=== PATIENT | female | born 1945 ===

== ENCOUNTER → 2022-01-06 15:05 | Outpatient (BNVA) | payer BC, SELFPAY | PROVIDERS: Family Provider Family Medicine; PCP Family Medicine; Visit Provider Family Medicine | DX: E03.9 Hypothyroidism, unspecified (principal); E78.2 Mixed hyperlipidemia; F32.9 Major depressive disorder, single episode, unspecified; I10 Essential (primary) hypertension; M19.90 Unspecified osteoarthritis, unspecified site; M54.16 Radiculopathy, lumbar region; Z76.89 Persons encountering health services in other specified circumstances | CPT/HCPCS: 80053; 80061; 84439; 84443; 85025 ==

== ENCOUNTER → 2023-07-06 10:38 | Outpatient (BNVA) | payer MEDICARE, SELFPAY | PROVIDERS: Family Provider Family Medicine; PCP Family Medicine; Visit Provider Family Medicine | DX: E55.9 Vitamin D deficiency, unspecified (principal); I10 Essential (primary) hypertension; E03.9 Hypothyroidism, unspecified; R63.4 Abnormal weight loss; E78.01 Familial hypercholesterolemia; E83.42 Hypomagnesemia; R79.89 Other specified abnormal findings of blood chemistry | CPT/HCPCS: 80053; 80061; 82306; 82607; 82746; 83735; 84439; 84443; 85025 ==

== ENCOUNTER 2023-08-31 09:13 | Outpatient (RCR) | payer MEDICARE, SELFPAY | END 2023-09-25 23:59 | disposition home or self-care (01) | LOC: SPT 09:13 | PROVIDERS: Visit Provider Family Medicine | DX: H81.10 Benign paroxysmal vertigo, unspecified ear (principal) | CPT/HCPCS: 95992; 97161 ==

== ENCOUNTER → 2024-01-26 12:22 | Outpatient (BNVA) | payer MEDICARE, SELFPAY | PROVIDERS: PCP Family Medicine; Visit Provider Family Medicine | DX: R00.1 Bradycardia, unspecified (principal); R06.00 Dyspnea, unspecified; R30.9 Painful micturition, unspecified; J84.10 Pulmonary fibrosis, unspecified; Q79.1 Other congenital malformations of diaphragm; M40.294 Other kyphosis, thoracic region; M47.894 Other spondylosis, thoracic region; M85.88 Other specified disorders of bone density and structure, other site | CPT/HCPCS: 71045; 80053; 81000; 82607; 82728; 83540; 84439; 84443; 85027; 86140; 87086 ==

== ENCOUNTER → 2024-07-05 10:44 | Outpatient (BNVA) | payer MEDICARE, SELFPAY | PROVIDERS: PCP Family Medicine; Visit Provider Family Medicine | DX: M19.90 Unspecified osteoarthritis, unspecified site (principal); M54.16 Radiculopathy, lumbar region; K21.9 Gastro-esophageal reflux disease without esophagitis; R30.0 Dysuria; K59.09 Other constipation | CPT/HCPCS: 81000 ==

== ENCOUNTER → 2024-11-03 14:25 | Outpatient (BNVA) | payer MEDICARE, SELFPAY | PROVIDERS: PCP Family Medicine; Visit Provider Family Medicine | DX: R30.0 Dysuria (principal) | CPT/HCPCS: 81000; 87086 ==